=== PATIENT | female | born 1945 | race Caucasian/White ===

== ENCOUNTER 2025-02-26 05:52 | Observation (INO) | payer OTHER ==
--- NOTE | 2025-02-20 10:27 | EKG ---
[facility] Test Date: 2025-02-20 Test Time: 10:23:58 Pat Name: KERI BARRY Department: [facility] Room: Gender: F City Designer: [id number] : 1945 Requested By: ELAINE DUARTE Order Number: [id number] Reading MD: Nicolas Conway Measurements Intervals [place] Rate: 58 P: 14 IN: 146 QRS: 28 QRSD: 83 T: 32 QT: 409 QTc: 402 Interpretive Statements Sinus rhythm No previous ECG available for comparison Electronically Signed On 02-21-2025 07:26:22 CDT by Nicolas Conway Please click the below link to view image of tracing.
[2025-02-20 10:35] LABS: BASOPHILS # (AUTO) 0.03 K/uL (0.00-0.20); BASOPHILS % (AUTO) 0.5 % (0.0-5.0); EOSINOPHILS # (AUTO) 0.27 K/uL (0.00-0.70); EOSINOPHILS % (AUTO) 4.8 % (0.0-8.0); HEMATOCRIT 35.5 % (36-48); IMMATURE GRANULOCYTE ABSOLUTE 0.01 K/uL (0-1); LYMPHOCYTES # (AUTO) 2.6 K/uL (1.0-4.8); LYMPHOCYTES % (AUTO) 45.3 % (21.0-51.0); MEAN CORPUSCULAR HEMOGLOBIN 33.5 pg (27.0-33.0); MEAN CORPUSCULAR HGB CONC 32.1 g/dL (32.0-36.0); MEAN CORPUSCULAR VOLUME 104.4 fL (79-99); MONOCYTES # (AUTO) 0.7 K/uL (0.1-1.0); MONOCYTES % (AUTO) 11.7 % (3.0-13.0); NEUTROPHILS # (AUTO) 2.1 K/uL (1.8-7.7); NEUTROPHILS % (AUTO) 37.5 % (40.0-77.0); PLATELET COUNT (AUTO) 225 K/uL (130-400); WHITE BLOOD COUNT (AUTO) 5.6 K/uL (4.8-10.8)
[2025-02-20 10:36] LABS: APPEARANCE,URINE CLEAR (CLEAR); BILIRUBIN,URINE NEGATIVE (NEGATIVE); COLOR,URINE LIGHT-YELLOW (YELLOW); GLUCOSE, URINE (UA) NEGATIVE (NEGATIVE); KETONES,URINE NEGATIVE (NEGATIVE); LEUKOCYTE ESTERASE ,URINE 250 Leu/uL (NEGATIVE); NITRATE,URINE NEGATIVE (NEGATIVE); OCCULT BLOOD,URINE NEGATIVE (NEGATIVE); PH,URINE 5.5 (5.0-8.0); PROTEIN,URINE NEGATIVE (NEGATIVE); UROBILINOGEN,URINE 0.2 mg/dL (0.2-1.0)
[2025-02-20 10:47] LABS: INR 0.97 (0.85-1.15); PROTHROMBIN TIME 10.3 SEC (9.6-11.6)
[2025-02-20 10:47] LABS: ADD UA MICROSCOPIC YES
[2025-02-20 10:51] LABS: ALBUMIN 3.3 g/dL (3.5-5.0); CREATININE 0.7 mg/dL (0.5-1.0); POTASSIUM 3.4 mmol/L (3.5-5.1)
[2025-02-20 10:54] VITALS: BP 188/76; PULSE 61; RESP 18; TEMP 97.3
[2025-02-20 11:00] LABS: MUCUS,URINE RARE LPF (None Seen); SQUAMOUS EPITHELIAL CELL,UR RARE /HPF (0-2)
--- NOTE | 2025-02-20 11:00 | NUR ---
PIEDADOP AV VAZQUEZ INSTRUCTED PT ON INCENTIVE SPIROMETRY.
--- NOTE | 2025-02-22 09:55 | NUR ---
report reported urine and urine cx to dr kelley. ok to proceed she will treat on admission. also informd susceptibility still pending
[~2025-02-26] VITALS: Ht 152.4 cm; Wt 56.2 kg
[2025-02-26] VITALS (23 sets, daily range): BP systolic 98–208; BP diastolic 47–99; PULSE 49–78; RESP 12–18; TEMP 97.1–98.3; O2SAT 96–98
[~2025-02-26 05:52] MED LIST: HYDR25TA PO; LOSA100T59 PO
[2025-02-26] MEDS ORDERED: LIDOCAINE PF 100MG/5ML (2%) SYRINGE 5ML ONE (06:37)
[2025-02-26] MEDS ORDERED: SUCCINYLCHOLINE CHLORIDE 20 MG/ML 10 ML VIAL ONE (06:37)
[2025-02-26] MEDS ORDERED: ondanSETRON 4MG INJ ONE (06:37)
[2025-02-26] MEDS ORDERED: proPOFol 10 MG/ML 20ML VIAL IV ONE (06:38)
[2025-02-26] MEDS ORDERED: GLYCOPYRROLATE 0.2 MG/ML 5 ML VIAL ONE (06:38)
[2025-02-26] MEDS ORDERED: NEOSTIGMINE METHYLSULFATE 1MG/ML IV ONE (06:38)
[2025-02-26] MEDS ORDERED: rocuRONium bROMide 10MG/1ML 5ML VL ONE (06:38)
[2025-02-26] MEDS ORDERED: dexaMETHasone SOD PHOSPHATE 10MG/ML 1ML VIAL ONE (06:38)
[2025-02-26] MEDS ORDERED: FENTanyl CITRate PF 50 MCG/1 ML 2ML VIAL ONE ×2 (06:38→07:55)
[2025-02-26] MEDS ORDERED: MIDAZOLAM HCL 1 MG/ML 2ML VIAL ONE (06:39)
[2025-02-26] MEDS ORDERED: phenylEPHRINE HCL 10 MG/ML 1ML VIAL IV ONE (06:40)
[2025-02-26] MEDS ORDERED: ROPivacaine 0.5% 5MG/ML 30ML ONE (06:42)
[2025-02-26] MEDS ORDERED: ketaMINE 50MG/ML SYRINGE 50 MG/ML DISP.SYRIN ONE (06:42)
[2025-02-26] MEDS: LACTATED RINGERS 1000ML 1,000 ML IV ONE (07:02)
[2025-02-26] MEDS: TRANEXAMIC ACID 1000MG/10ML ONE (07:36)
[2025-02-26] MEDS: ceFAZolin SODIUM 2 GM VIAL ONE (07:45)
[2025-02-26] MEDS ORDERED: DiphenhydrAMINE HCL 50 MG/ML VIAL IVP PRN (08:00)
[2025-02-26] MEDS ORDERED: traMADol HCL 50 MG TABLET PO PRN (08:00)
[2025-02-26] MEDS ORDERED: PoTASSium chl 10% ELIXIR 20MEQ 20 MEQ/15 ML UDCUP PO PRN ×2 (08:00)
[2025-02-26] MEDS ORDERED: FERROUS FUMARATE 324 MG TABLET PO PRN ×2 (08:00)
[2025-02-26] MEDS ORDERED: CYCLOBENZAPRINE HCL 10 MG TABLET PO PRN ×2 (08:00)
[2025-02-26] MEDS ORDERED: CALCIUM CARB 500MG PO PRN ×2 (08:00)
[2025-02-26] MEDS ORDERED: PoTASSium chloRIDE 20MEQ/100ML 100 ML IV PRN ×2 (08:00)
[2025-02-26] MEDS ORDERED: PoTASSium chloRIDE 20MEQ ER 20 MEQ ERTAB PO PRN ×2 (08:00)
[2025-02-26] MEDS ORDERED: HYDROcodone/APAP 5/325 1 TAB TABLET PO PRN (08:00)
[2025-02-26] MEDS ORDERED: 0.9%NACL 1000ML 1,000 ML IV SCH (08:00)
[2025-02-26] MEDS ORDERED: ondanSETRON 4MG INJ IVP PRN ×2 (08:00)
[2025-02-26] MEDS: ketOROlac 30MG VIAL (30MG/ML) ONE (08:10)
[2025-02-26] MEDS: ROPivacaine 0.5% 5MG/ML 30ML ONE (08:12)
[2025-02-26] MEDS ORDERED: polyETHYLene GLYCol 3350 17 GM POWD.PACK PO SCH (09:00)
[2025-02-26] MEDS: polyETHYLene GLYCol 3350 17 GM POWD.PACK PO SCH (09:00)
[2025-02-26] MEDS ORDERED: GABApentin 100 MG CAPSULE PO SCH (09:00)
[2025-02-26] MEDS: ketOROlac 15MG/ML VIAL (15MG/ML) IV SCH (10:11)
[2025-02-26] MEDS: ketOROlac 15MG/ML VIAL (15MG/ML) ONE (10:12)
[2025-02-26] MEDS ORDERED: hydroCHLOROthiazide 25 MG TABLET PO PRN (11:00)
--- NOTE | 2025-02-26 11:02 | HMCIMG ---
KNEE/PATELLA 1-2VWS RT HISTORY: Right total knee arthroplasty COMPARISON: None TECHNIQUE: 2 images of right knee were obtained. FINDINGS: Total right knee arthroplasty changes are seen. Postop changes are seen with soft tissue swelling and soft tissue emphysema. Alignment appears be grossly adequate. There is no acute displaced fracture or dislocation. Degenerative changes are seen. IMPRESSION: 1. Findings as described above.
--- NOTE | 2025-02-26 11:27 | OP ---
Operative Note: DATE OF PROCEDURE: 02/26/25 PREOPERATIVE DIAGNOSIS: Right knee osteoarthritis. POSTOPERATIVE DIAGNOSIS: Right knee osteoarthritis. PROCEDURE PERFORMED: Right knee total knee arthroplasty. SURGEON: Nedra Quiroga MD CHAR HOUSE SUPERVISOR: Susana Maguire. ANESTHESIA: General with adductor canal block. ANESTHESIA: MARCOS Rivas. ESTIMATED BLOOD LOSS: 50cc. COMPLICATIONS: None. DRAINS: None. SPECIMENS REMOVED: resected bone. Not sent to pathology. IMPLANTS: [employer] Journey II BCS size 4 Oxinium femur, size 2 tibial base plate, 32 mm patella, 10 mm polyethylene STATEMENT OF MEDICAL NECESSITY: The patient is a 79-year-old female who suffers from right knee osteoarthritis failing conservative management. After discussion of the risks, benefits, and alternatives with the patient, they voluntarily agreed to undergo the aforementioned procedure. DESCRIPTION OF PROCEDURE: Patient was properly identified in the preoperative holding area. Surgical site marking was verified and surgery consent reviewed. The patient was then taken to the operating room and placed in supine position on the OR table. After induction of general anesthesia, preoperative antibiotics were given, all bony prominences were well-padded, and a well padded tourniquet was applied but not inflated at this time. The right lower extremity was then prepped and draped in usual sterile fashion. Surgical time out was done verifying correct surgery, side, site, and location to be performed. We then began the procedure by exsanguinating the limb using an Esmarch and inflating the tourniquet to 350 mmHg. At this point, we made an anterior midline incision using a 10 blade, coming down sharply the level of the fascia. Skin flaps were elevated medially and laterally. We then obtained a clean 10 blade and performed a standard medial parapatellar arthrotomy. We excised the infrapatellar fat pad. We performed our soft tissue releases off of the tibia. We transected the ACL and removed the anterior portion of the medial & lateral meniscus. We then brought the knee into hyperflexion with the patella everted. We used our entry reamer to enter the femoral canal. We then placed our intramedullary cutting guide for our distal femoral cutting block. We then performed our distal femoral osteotomy ensuring appropriate rotation and removed the bony wafer. We then removed these pins and block and then used jig 2 to size the distal femur with the after mentioned size found. We then placed our 5-in-1 cutting block in 3 degrees of external rotation and took our 5 cuts ensuring to protect the patellar tendon and the collateral ligaments. We then removed the cutting block and our bony fragments using a curved osteotome. We then placed our PCL retractor subluxating the tibia anteriorly. Using an extra medullary tibial cutting guide, we hung the block for our proximal tibial cut taking 2 mm off the more diseased portion. Prior to pinning this block in place, we ensured appropriate varus/valgus alignment and posterior slope similar to the [place] slope of the patient's knee. We then performed our proximal tibial osteotomy and removed the bony wafer using Bovie electrocautery to release any remaining soft tissue attachments. We then used our tibial sizing paddle and checked once more for varus & valgus alignment and found this to be appropriate. At this point, we pinned our tibial paddle in place. We then removed the PCL retractor and subluxated the tibia posteriorly while we placed our femoral trial component. We then finished preparing the notch with the reamer and box chisel. The notch portion of the trial femoral component was then placed. A posterior stabilized polyethylene, size 9 trial was placed. The knee was then taken through range of motion and found to have stable full range of motion. We then placed a bump under the ankle and everted the patella to perform our freehand cut of the undersurface the patella. We then sized our patella and reamed to the lug holes for this. We placed our trial patellar component and begin to take the knee through range of motion. The patella had appropriate tracking. At this point we began removing our trial components and punched the tibial keel prior to removing our tibial trial component. Final components were opened and cement was mixed on the back table while we injected local cocktail in the posterior capsule. We then thoroughly irrigated out the bone and dried the bony surfaces. We cemented our tibial component in place ensuring to remove excess cement and placed our trial polyethylene. We then cemented our femoral component in place once again taking time to ensure excess cement was removed leg was brought into full extension to help squeeze the excess cement from around the femoral component. We then brought the knee back in a flexion to remove this portion of the cement at this point we placed the ankle in a bump thoroughly irrigated off the patellar component and cemented our patellar component in standard fashion again removing excess cement. While we waited for the cement to cure, we thoroughly irrigated out the wound with normal saline. Once our cement had cured, we took the knee through a range of motion and found full and stable range of motion. We then elected to use the size 10 polyethylene and removed our trial polyethylene. We impacted our final polyethylene component in place in standard fashion and took the knee through a range of motion check once more. This was satisfactory so we began to repair the arthrotomy using #1 Vicryl in interrupted [id number] fashion. Subcutaneous tissue was repaired using 2-0 Vicryl. Running subcuticular 3-0 Mo nocryl stitch with Dermabond placed over this for the skin. We then applied a foam barrier dressing and a pressure dressing consisting of 4 x 4's fluffs and an Hernan wrap. The tourniquet was then deflated. Patient was awakened from anesthesia, and they were taken to the recovery room in stable condition. NEDRA QUIROGA MD Feb 26, 2025 11:27
--- NOTE | 2025-02-26 12:00 | NUR ---
MET W SPOUSE AND PATIENT AT BEDSIDE RE HOME HEALTH AFTER DISCHARGE PREVIOUSLY INDEPENDENT, LIVES WITH SPOUSE, HOME SAFE AND ACCESSIBLE, SHOWER CHAIR AND STANDARD WALKER AVAILABLE. DENIES FINANCIAL STRAIN AND STATES HAS GOOD SOCIAL CONTACTS AT THIS TIME HARPREET OBTAINED AND PKT PENDING TO BE SENT
--- NOTE | 2025-02-26 12:10 | DS ---
Discharge Summary Hospital Course Summary: The patient was admitted to the hospital postoperatively on 02/26/2025 after undergoing right total knee arthroplasty. They did well with routine postoperative pain control. They worked well with physical therapy. They developed some acute blood loss anemia but remained asymptomatic. The hospital course was otherwise uncomplicated. They were subsequently able to be discharged on postoperative day [] once discharge arrangements were made with home health physical therapy. [place] Member(s): none Procedure(s): Right total knee arthroplasty, 02/26/2025 Assessment/Plan: ASSESSMENT: Right total knee arthroplasty-doing well Acute blood loss anemia-asymptomatic PLAN: See discharge instructions Discharge Instructions: Begin working with home health physical therapy. Dressing may be removed 02/28/25 and left open to air. Showers ok allowing soap and water to run over the wound. Pat dry. Do not submerge wound in tub/pool. Do not apply ointments. Do not apply Betadine. Do not apply peroxide. Ice packs to decrease pain/swelling. Prescriptions have been sent to the pharmacy: *Rincon 5/325mg 1-2 tab every 6 hours as needed for severe pain. (please call for refills) Cyclobenzaprine 5mg 1 tab every 8 hours as needed for muscle spasm pain. Gabapentin 100mg 1 tab every 8 hours (may discontinue if drowsy). Colace 100mg 1 tab orally twice a day as needed for constipation. Aspirin 325mg twice a day for 30 days to prevent blood clots. Call for a follow-up appointment in 2-3 weeks at [facility]. Home Medications: Reported Medications Hydrochlorothiazide (Hydrochlorothiazide) 25 Mg Tablet, 25 MG PO DAILY PRN for INCREASED BLOOD PRESSURE, TAB 02/20/25 Losartan Potassium (Losartan Potassium) 100 Mg Tablet, 100 MG PO AM, TAB 02/20/25 ELAINE DUARTE MD Feb 26, 2025 12:10
[2025-02-26] MEDS: ceFAZolin SODIUM 2 GM VIAL IVP SCH (13:17)
[2025-02-26] MEDS: GABApentin 100 MG CAPSULE PO SCH (13:18)
[2025-02-26] MEDS: 0.9%NACL 1000ML 1,000 ML IV SCH (13:19)
--- NOTE | 2025-02-26 15:30 | NUR ---
ORTHO COORDINATOR: TEACHING REGARDING DVT AND PNEUMONIA PREVENTION, PAIN EXPECTATIONS AND PAIN MANAGEMENT. PATIENT UP TO CHAIR, AT BEDSIDE. B SCD SLEEVES AND MACHINE PRESENT IN ROOM. INCENTIVE SPIROMETER ON BEDSIDE TRAY. PATIENT RETURN DEMONSTRATED PROPER USE OF INCENTIVE SPIROMETER AND FOOT FLEXION/EXTENSION EXERCISES. PATIENT INSTRUCTED TO USE INCENTIVE SPIROMETER DURING COMMERCIAL BREAKS ON TV. PATIENT AND VERBALIZED UNDERSTANDING. NUMERIC PAIN SCALE REVIEWED. PATIENT RATES CURRENT PAIN 1/10. INSTRUCTED PATIENT PAIN MEDICATION MUST BE REQUESTED. PATIENT VERBALIZED UNDERSTANDING. PATIENT EXPRESSES DESIRE TO DISCHARGE HOME WITH HOME HEALTH PHYSICAL THERAPY. PATIENT DOES NOT HAVE WALKER. ICE PACK BROUGHT TO ROOM, PLACED TO SURGICAL KNEE BY PATIENT. INSTRUCTIONS PROVIDED. NO ADDITIONAL QUESTIONS/CONCERNS AT THIS TIME.
[2025-02-27 04:50] VITALS: BP 122/58; PULSE 71; RESP 18; TEMP 98.1
[2025-02-27 05:41] LABS: HEMATOCRIT 26.9 % (36-48); MEAN CORPUSCULAR HEMOGLOBIN 32.9 pg (27.0-33.0); MEAN CORPUSCULAR HGB CONC 31.6 g/dL (32.0-36.0); MEAN CORPUSCULAR VOLUME 104.3 fL (79-99); RED BLOOD CELL COUNT(AUTO) 2.58 MIL/uL (4.00-5.50); WHITE BLOOD COUNT (AUTO) 9.4 K/uL (4.8-10.8)
[2025-02-27 06:01] LABS: CREATININE 0.9 mg/dL (0.5-1.0)
--- NOTE | 2025-02-27 06:44 | NUR ---
Patient up in chair. Hernan wrap removed. Denies pain. Ice pack provided. Call light within reach.
[2025-02-27 08:00] VITALS: BP 150/48; PULSE 71; RESP 18; TEMP 98.7
[2025-02-27] MEDS ORDERED: ketOROlac 15MG/ML VIAL (15MG/ML) IV PRN (08:00)
--- NOTE | 2025-02-27 08:04 | PN ---
Ortho Post op day #1 This morning the patient is awake alert and oriented. She is seated at the bedside enjoying her breakfast in a chair in no acute distress. Vital signs have remained stable she has been afebrile. Laboratory results reviewed. Noted to have a drop in hemoglobin and hematocrit as expected after total knee arthroplasty. Patient is asymptomatic and we will address per protocol as necessary. Voiding on her own without any difficulty but yet to pass gas. Operative findings discussed with the patient. Dressing is intact. Ice is present to operative site. Hernan bandage is his I have already been removed. Lower extremity neurovascularly intact. Negative Homans. Patient reporting acceptable pain management. She did very well with physical therapy yesterday in the ambulating about 50 ft. Pending further physical therapy this morning. The anticipated discharge goal is home health/PT. Reinforced incentive spirometry. Assessment: Status post right total knee arthroplasty. Asymptomatic acute postoperative blood loss anemia. Plan: Continue with Dr. Quiroga's total knee arthroplasty protocol and discharge planning. Asymptomatic acute postoperative blood loss anemia addressed with the protocol as necessary Vitals/Labs Vital Signs Date Time Temp Pulse Resp B/P (MAP) Pulse Ox O2 Delivery O2 Flow Rate FiO2 02/27/25 04:50 98.1 71 18 122/58 100 Room Air 21 02/26/25 20:00 0 Laboratory Tests 02/27/25 05:28 Medications Current Medications Cefazolin Sodium 2 gm STK-MED ONCE .ROUTE Last administered on 02/26/25at 07:45; Start 02/26/25 at 06:22; Stop 02/26/25 at 06:22; Status DC Lactated Ringer's 1,000 ml @ As Directed STK-MED ONCE IV Last administered on 02/26/25at 07:02; Start 02/26/25 at 06:22; Stop 02/26/25 at 06:22; Status DC Lidocaine HCl 100 mg STK-MED ONCE .ROUTE; Start 02/26/25 at 06:37; Stop 02/26/25 at 06:37; Status DC Ondansetron HCl 4 mg STK-MED ONCE .ROUTE; Start 02/26/25 at 06:37; Stop 02/26/25 at 06:37; Status DC Succinylcholine Chloride 200 mg STK-MED ONCE .ROUTE; Start 02/26/25 at 06:37; Stop 02/26/25 at 06:38; Status DC Dexamethasone Sodium Phosphate 10 mg STK-MED ONCE .ROUTE; Start 02/26/25 at 06:38; Stop 02/26/25 at 06:38; Status DC Glycopyrrolate 1 mg STK-MED ONCE .ROUTE; Start 02/26/25 at 06:38; Stop 02/26/25 at 06:38; Status DC Propofol 200 mg STK-MED ONCE IV; Start 02/26/25 at 06:38; Stop 02/26/25 at 06:38; Status DC Neostigmine Methylsulfate 10 mg STK-MED ONCE IV; Start 02/26/25 at 06:38; Stop 02/26/25 at 06:38; Status DC Rocuronium Meridian 50 mg STK-MED ONCE .ROUTE; Start 02/26/25 at 06:38; Stop 02/26/25 at 06:39; Status DC Fentanyl Citrate 100 mcg STK-MED ONCE .ROUTE; Start 02/26/25 at 06:38; Stop 02/26/25 at 06:39; Status DC Midazolam HCl 2 mg STK-MED ONCE .ROUTE; Start 02/26/25 at 06:39; Stop 02/26/25 at 06:39; Status DC Phenylephrine HCl 10 mg STK-MED ONCE IV; Start 02/26/25 at 06:40; Stop 02/26/25 at 06:40; Status DC Ropivacaine 150 mg STK-MED ONCE .ROUTE; Start 02/26/25 at 06:42; Stop 02/26/25 at 06:42; Status DC Ketamine HCl 50 mg STK-MED ONCE .ROUTE; Start 02/26/25 at 06:42; Stop 02/26/25 at 06:43; Status DC Ketorolac Tromethamine 30 mg STK-MED ONCE .ROUTE Last administered on 02/26/25at 08:10; Start 02/26/25 at 06:52; Stop 02/26/25 at 06:55; Status DC Ropivacaine 150 mg STK-MED ONCE .ROUTE Last administered on 02/26/25at 08:12; Start 02/26/25 at 06:52; Stop 02/26/25 at 06:55; Status DC Tranexamic Acid 1,000 mg STK-MED ONCE .ROUTE Last administered on 02/26/25at 07:36; Start 02/26/25 at 07:12; Stop 02/26/25 at 07:18; Status DC Sodium Chloride 1,000 ml @ 100 mls/hr Q10H IV; Start 02/26/25 at 08:00; Stop 02/26/25 at 07:44; Status DC Polyethylene Glycol 17 gm DAILY PO; Start 02/26/25 at 09:00; Stop 02/26/25 at 07:45; Status DC Bisacodyl 10 mg DAILY PRN RC; Start 03/01/25 at 08:00; Stop 02/26/25 at 07:45; Status DC Ketorolac Tromethamine 15 mg Q6H PRN IV; Start 02/27/25 at 08:00; Stop 03/04/25 at 07:59 Ferrous Fumarate 324 mg DAILY PRN PO; Start 02/26/25 at 08:00; Stop 02/26/25 at 07:46; Status DC Ondansetron HCl 4 mg Q6H PRN IVP; Start 02/26/25 at 08:00; Stop 02/26/25 at 07:46; Status DC Calcium Carbonate 500 mg Q12H PRN PO; Start 02/26/25 at 08:00; Stop 02/26/25 at 07:46; Status DC Cefazolin Sodium 2 gm Q8H IVP Last administered on 02/26/25at 21:38; Start 02/26/25 at 13:00; Stop 02/26/25 at 21:01; Status DC Cyclobenzaprine HCl 5 mg Q8H PRN PO; Start 02/26/25 at 08:00; Stop 02/26/25 at 07:46; Status DC Gabapentin 100 mg TID PO; Start 02/26/25 at 09:00; Stop 02/26/25 at 07:46; Status DC Aspirin 325 mg DAILY PO; Start 02/27/25 at 09:00; Stop 03/29/25 at 08:59 Ketorolac Tromethamine 15 mg Q8H IV Last administered on 02/26/25at 23:30; Start 02/26/25 at 08:00; Stop 02/27/25 at 00:01; Status DC Potassium Chloride 100 ml @ 100 mls/hr AD PRN IV; Start 02/26/25 at 08:00; Stop 02/26/25 at 07:46; Status DC Potassium Chloride 20 meq AD PRN PO; Start 02/26/25 at 08:00; Stop 02/26/25 at 07:47; Status DC Potassium Chloride 20 meq AD PRN PO; Start 02/26/25 at 08:00; Stop 02/26/25 at 07:47; Status DC Tramadol HCl 50 mg Q6H PRN PO; Start 02/26/25 at 08:00; Stop 03/03/25 at 07:59 Acetaminophen/ Hydrocodone Bitart Q4H PRN PO; Start 02/26/25 at 08:00; Stop 02/26/25 at 07:47; Status DC Sodium Chloride 1,000 ml @ 100 mls/hr Q10H IV Last administered on 02/26/25at 23:30; Start 02/26/25 at 08:00; Stop 02/27/25 at 08:00; Status DC Polyethylene Glycol 17 gm DAILY PO; Start 02/26/25 at 09:00; Stop 03/28/25 at 08:59 Bisacodyl 10 mg DAILY PRN RC; Start 03/01/25 at 08:00; Stop 03/31/25 at 07:59 Ferrous Fumarate 324 mg DAILY PRN PO; Start 02/26/25 at 08:00; Stop 03/28/25 at 07:59 Ondansetron HCl 4 mg Q6H PRN IVP; Start 02/26/25 at 08:00; Stop 03/28/25 at 07:59 Calcium Carbonate 500 mg Q12H PRN PO; Start 02/26/25 at 08:00; Stop 03/28/25 at 07:59 Diphenhydramine HCl 25 mg Q6H PRN IVP; Start 02/26/25 at 08:00; Stop 03/28/25 at 07:59 Cyclobenzaprine HCl 5 mg Q8H PRN PO; Start 02/26/25 at 08:00; Stop 03/28/25 at 07:59 Gabapentin 100 mg TID PO Last administered on 02/26/25at 21:39; Start 02/26/25 at 09:00; Stop 03/28/25 at 08:59 Potassium Chloride 100 ml @ 100 mls/hr AD PRN IV; Start 02/26/25 at 08:00; Stop 03/28/25 at 07:59 Potassium Chloride 20 meq AD PRN PO; Start 02/26/25 at 08:00; Stop 03/28/25 at 07:59 Potassium Chloride 20 meq AD PRN PO; Start 02/26/25 at 08:00; Stop 03/28/25 at 07:59 Acetaminophen/ Hydrocodone Bitart Q4H PRN PO; Start 02/26/25 at 08:00; Stop 03/03/25 at 07:59 Fentanyl Citrate 100 mcg STK-MED ONCE .ROUTE; Start 02/26/25 at 07:55; Stop 02/26/25 at 07:55; Status DC Ketorolac Tromethamine 15 mg STK-MED ONCE .ROUTE; Start 02/26/25 at 10:06; Stop 02/26/25 at 10:06; Status DC Hydrochlorothiazide 25 mg DAILY PRN PO; Start 02/26/25 at 11:00; Stop 02/26/25 at 10:46; Status DC Losartan Potassium 100 mg AM PO; Start 02/27/25 at 09:00; Stop 03/29/25 at 08:59 WILLIAM ARCINIEGA NP Feb 27, 2025 08:04
[2025-02-27] MEDS: LoSARTan 100 MG TABLET PO SCH (09:21)
[2025-02-27] MEDS: ASPIRIN 325MG EC TAB PO SCH (09:21)
[2025-02-27] MEDS: HYDROcodone/APAP 5/325 1 TAB TABLET PO PRN (09:22)
[2025-02-27 12:00] VITALS: BP 122/46; PULSE 68; RESP 18; TEMP 98
[2025-02-27] MEDS ORDERED: DOCU-116 PO (12:14)
[2025-02-27] MEDS ORDERED: HYDR-4060 PO (12:14)
[2025-02-27] MEDS ORDERED: GABA100C PO (12:14)
[2025-02-27] MEDS ORDERED: ASPI-891 PO (12:14)
[2025-02-27] MEDS ORDERED: CYCL-309 PO (12:14)
[2025-02-27 16:00] VITALS: BP 140/64; PULSE 71; RESP 18; TEMP 98.3
[2025-03-01] MEDS ORDERED: BisaCODYL 10 MG SUPP.RECT RC PRN ×2 (08:00)
== END 2025-02-27 18:50 | disposition home or self-care (01) ==
LOC: DAH 05:52 → DAHIP 05:53 → 4DH 10:37
PROVIDERS: ADMIT Student in an Organized Health Care Education/Training Program; ATTEND Student in an Organized Health Care Education/Training Program
DX: M17.11 Unilateral primary osteoarthritis, right knee (principal); G89.18 Other acute postprocedural pain; D62 Acute posthemorrhagic anemia; I10 Essential (primary) hypertension; Z79.899 Other long term (current) drug therapy
CPT/HCPCS: 82040; 80048 ×2; 85025; 85610; 85730; 87086 ×2; 87186; 84134; 86140; 81001; 36415 ×2; 93005; 87641; 64447; 27447; 96374; 96376 ×2; 96375; 73560; 97161; 97116 ×3; 85027; 97530 ×4; G0378 ×32; A4223 ×2; A4663; J7120; J3010 ×2; J3490 ×4; J1100; J0330; J2003; J2250; J2704; J2405; J1885 ×4; J2710; J2795 ×2; J2371; J0690 ×3; C1713 ×2; C1776 ×2; A4649 ×2; A4930 ×3; A6255; A5120; A4213; A4222; A4221; A4216; 96365; 96366